=== PATIENT | female | born 1990 | race Caucasian/White ===

== ENCOUNTER 2018-07-04 17:27 | Day surgery (SDC) | payer BC, SELFPAY ==
[~2018-07-04 17:27] MED LIST: Lidocaine 1% PF 5 ML VIAL ONE; Ondansetron HCl/PF 4 MG/2 ML Vial ONE; PROPOFOL 200 MG/20 ML VIAL ONE; Succinylcholine Chloride 20 MG/ML 10 ml SYRINGE FS ONE
[2018-07-04 18:02] LABS: #Eosinphils 0.1 thou/uL (0.0-0.7); #Monocytes 0.5 thou/uL (0.11-0.59); #Neutrophils 6.5 thou/uL (1.40-6.50); %Basophils 0.5 % (0.0-1.0); %Eosinophils 1.3 % (0.0-10.0); %Lymphocytes 21.9 % (21.0-51.0); %Monocytes 5.4 % (0.0-10.0); Hemoglobin 12.8 g/dL (12.0-16.0); Mean Corpuscular HGB CONC 34.4 g/dL (32.0-36.0); Mean Corpuscular Hemoglobin 31.3 pg (27.0-31.0); Mean Corpuscular Volume 91.2 fL (78.0-98.0); Platelet Count 212 thou/uL (130-400); RBC Distribution Width 11.1 % (11.5-14.5); White Blood Cell (WBC) Count 9.2 thou/uL (4.8-10.8)
--- NOTE | 2018-07-04 21:45 | ULT ---
PELVIC ULTRASOUND: 07/04/18 COMPARISON: None. HISTORY: 28-year-old female with a history of miscarriage and increased vaginal bleeding. TECHNIQUE: Multiplanar miller scale sonographic imaging of the pelvis obtained with transvaginal imaging. The ovar ies are assessed with color flow and spectral analysis. FINDINGS: The endometrium is diffusely thickened, measuring up to 2.5 cm in transverse dimension. This endometr ial thickening extends from the region of the fundus through the region of the cervix. Blood flow is noted in portions of the thickened endometrium. The right ovary measures 2.7 x 1.4 x 3.5 cm and demonstrates normal blood flow without evidence for m ass. The left ovary measures 3.1 x 2.2 x 2.1 cm and demonstrates normal blood low without evidence for mas s. There is trace free fluid in the pelvic cul-de-sac. IMPRESSION: Markedly thickened endometrium diffusely with scattered areas of internal blood flow on doppler inter rogation. Findings are suspicious for retained product of conception in the proper clinicaly setting. POS: VIKTOR[facility]
[2018-07-04] MEDS ORDERED: Midazolam HCl 2 mg/2 ml Vial ONE (22:21)
[2018-07-04] MEDS ORDERED: Fentanyl 100 MCG/2 ML VIAL ONE (22:21)
[2018-07-04] MEDS ORDERED: Ondansetron HCl/PF 4 MG/2 ML Vial ONE (22:30)
[2018-07-04 22:35] LABS: Bilirubin Negative (Negative); Blood, Urine Small (Negative); Clarity CLEAR (Clear); Glucose, Urine (Dipstick) Negative (Negative); Leukocyte Negative (Negative); Nitrite Negative (Negative); Protein, Urine (Dipstick) Negative (Neg-Trace); Specific Gravity, Urine 1.005 (1.002-1.036); Urobilinogen 0.2 mg/dL (0.2-1.0)
[2018-07-04 22:37] LABS: Bacteria/HPF None Seen HPF (None Seen); Hyaline Casts/LPF 0-3 HYALINE CAST LPF (0-3 Hyaline); RBC/HPF 0-3 HPF (0-3); Squamous Epithelial None Seen HPF (0-3); WBC/HPF None Seen HPF (0-3)
[2018-07-04 22:43] LABS: ALT (SGPT) 10 U/L (8-55); AST (SGOT) 15 U/L (5-34); Albumin 4.1 g/dL (3.5-5.0); Alkaline Phosphatase 57 U/L (40-150); Anion Gap 10 mmol/L (10-20); BUN (Urea Nitrogen) 12 mg/dL (7.0-18.7); Bilirubin, Total 0.6 mg/dL (0.2-1.2); Calc. Creatinine Clearance 0 mL/min (70-130); Calcium 9.1 mg/dL (7.8-10.44); Carbon Dioxide 26 mmol/L (22-29); Chloride 107 mmol/L (98-107); Estimated GFR-MDRD Greater than 90; Potassium 3.2 mmol/L (3.5-5.1); Protein, Total 7.1 g/dL (6.0-8.3); Sodium 140 mmol/L (136-145)
[2018-07-04 22:49] LABS: Glucose 75 mg/dL (70-105)
--- NOTE | 2018-07-05 04:34 | OP ---
DATE OF SERVICE: 07/04/2018 PREOPERATIVE DIAGNOSES: 1. Incomplete at estimated gestational age of 9 weeks. 2. Acute vaginal bleeding. POSTOPERATIVE DIAGNOSES: 1. Incomplete at estimated gestational age of 9 weeks. 2. Acute vaginal bleeding. PROCEDURE: Suction D&C. ANESTHESIA: General. SURGEON: Shukri Ritter M.D. COMPLICATIONS: None. COUNTS: Correct. CONDITION: Stable. DISPOSITION: To recovery room. ESTIMATED BLOOD LOSS: 100 mL. FINDINGS: A cervical dilation of 2-3 cm with a clearly visible products of conception and clot. INDICATIONS FOR PROCEDURE: Ms. Marlene Christian after being counseled for the risks and benefits of a s uction D&C in the setting of incomplete and vaginal bleeding, the patient provided informed consent. DESCRIPTION OF PROCEDURE: She was taken to the operating room where she was placed under general ane sthesia and placed in dorsal lithotomy position in [facility] cane stirrups. She was then prepared and dr aped in the normal sterile fashion. Attention was placed vaginally with an operative speculum to shahnaz ntify the cervix, and immediately, the cervix was clearly visible 2-3 cm dilated with clot and at the os. A 9 curved Albanian was then used and gently inserted into the uterine cavity to the fundus, and with 2-3 passes, the copious amount of products of conception/endometrium was then removed clearing o ut the visual field. A sharp curette was then passed, and a good uterine cry was then felt in all 4 quadrants. Suction curette was then used one more time to remove any curetted material and the bleed ing. Given the amount of bleeding that began after the curette, a bimanual pressure was placed on th e uterus, and bladder was emptied. On reevaluation, the bleeding had abated. Tenaculum sites were a lso hemostatic, and the procedure was completed. The patient was taken out of the lithotomy position and extubated and sent to recovery room in stable condition.
== END 2018-07-05 01:10 | disposition home or self-care (01) ==
LOC: ERS 17:27 → SDC/OP 22:55
PROVIDERS: ATTEND Obstetrics & Gynecology
PROC: 10D17ZZ Extraction of Products of Conception, Retained, Via Natural or Artificial Opening (ICD-10-PCS; principal; 2018-07-04)
DX: O03.1 Delayed or excessive hemorrhage following incomplete spontaneous abortion (principal); Z88.5 Allergy status to narcotic agent
CPT/HCPCS: 36415; 76856; 80053; 81003; 81015; 83605; 84702; 85025; 86900; 86901; 96374; J2001; J2250; J2270; J2405; J2704; J3010